=== PATIENT | male | born 1975 | race Caucasian/White ===

== ENCOUNTER 2021-06-28 17:40 | Emergency (ER) | payer OTHER, SELFPAY ==
[2021-06-28 17:53] VITALS: BP 158/104; PULSE 98; RESP 18; TEMP 37.2; O2SAT 99
--- NOTE | 2021-06-28 17:57 | ED.EYEPROB ---
HPI - Eye Problem General Chief complaint: Eye Problems Stated complaint: Rt eye pain Source: patient and RN notes reviewed Limitations: no limitations History of Present Illness HPI Narrative: The patient, is previously healthy does not wear eyeglasses/contacts, presents with right eye discomfort. Patient [place] and felt a branch, or saw dust resulting getting in his right eye. He complains of continued pain, redness, photophobia, watery discharge and grainy/bumpy sensation with blinking. Related Data Allergies Allergy/AdvReac Type Severity Reaction Status Date / Time No Known Allergies Allergy Verified 06/28/21 17:49 Review of Systems Review of Systems: The patient has been informed that they may have pre-hypertension or Hypertension based on a BP reading in the department. I recommend that the patient call the primary care provider listed on their discharge instructions or a physician of their choice this week to arrange follow up for further evaluation of possible pre-hypertension or Hypertension General/Constitutional: No weight loss,fever Eyes: N0: Redness,discharge Ears/Nose/Throat: No: Epistaxis,ear discharge Respiratory: Denies: Hemoptysis Gastrointestinal: No Vomiting, Bleeding-rectal Skin: No Lumps, eruption Neurologic: No Focal Weakness,Sz Hematologic: Denies: Petechiae/Purpura All Other Systems: Reviewed and Negative PMFSH Comments At time of signature, agree with nursing past medical, surgical, social and family history. There is no relevant family history pertinent to the presenting complaint Exam Narrative: General Appearance: Well appearing, Well nourished, No distress EYE: PERRLA [id number] normal), EOMI Lens normal)corneas Fluorescein uptake 1x3 mm vertical abrasion on visual axis , ant chamber deep, Conjunctiva injection Ears: External ear normal, Auditory canal normal Nose: Normal nose, Nares clear Mouth/Throat: Normal appearing, Normal lips, Supple, Respiratory: Airway patent, No respiratory distress Skin: Warm, Dry Neurological: A&O x3, CN II-X intact Psychiatric: Normal mood, Normal affect Course Vital Signs Vital signs: Vital Signs Temperature 98.9 F 06/28/21 17:53 Pulse Rate 98 06/28/21 17:53 Respiratory Rate 18 06/28/21 17:53 Blood Pressure 158/104 H 06/28/21 17:53 Pulse Oximetry 99 06/28/21 17:53 Temperature 98.9 F 06/28/21 17:53 Pulse Rate 98 06/28/21 17:53 Respiratory Rate 18 06/28/21 17:53 Blood Pressure 158/104 H 06/28/21 17:53 Pulse Oximetry 99 06/28/21 17:53 Discharge Plan Discharge Clinical Impression: Corneal abrasion Qualifiers: Encounter type: initial encounter Laterality: right Qualified Code(s): S05.01XA - Injury of conjunctiva and corneal abrasion without foreign body, right eye, initial encounter Patient Disposition: Home, Self-Care Condition: Stable Instructions: Corneal Abrasion (ED) Additional Instructions: See eye doctor in follow-up Prescriptions: New prednisone 20 mg tablet 60 mg PO DAILY Qty: 9 RF: 0 acetaminophen-codeine 300-30 mg tablet 1 - 1.5 tablet PO BID PRN (Reason: pain) Qty: 20 RF: 0 sulfacetamide sodium [Bleph-10] 10 % drops 2 drp RIGHT EYE Q4H Qty: 5 RF: 0 tropicamide [Mydriacyl] 1 % drops 2 drp RIGHT EYE ONCE 2 Days Qty: 3 RF: 0 Follow-up/Referrals: PHYSICIAN,CAN RECONDITIONER [Primary Care Provider] -
== END 2021-06-28 18:23 | disposition home or self-care (01) ==
PROVIDERS: Emergency Provider Emergency Medicine
DX: H57.11 Ocular pain, right eye (principal); S05.01XA Injury of conjunctiva and corneal abrasion without foreign body, right eye, initial encounter; X58.XXXA Exposure to other specified factors, initial encounter
CPT/HCPCS: 99213; G0463